=== PATIENT | male | born 1970 | race Caucasian/White ===

== ENCOUNTER 2020-03-07 10:17 | Outpatient (NON) | payer OTHER, SELFPAY ==
[2020-03-07 20:03] LABS: SARS-CoV-2 RNA PCR Negative
== END 2020-03-07 10:18 ==
PROVIDERS: Visit Provider Clinical Nurse Specialist
DX: R05 Cough (principal); Z20.828 Contact with and (suspected) exposure to other viral communicable diseases
CPT/HCPCS: 87635; C9803; U0003

== ENCOUNTER 2020-09-20 11:06 | Outpatient (NON) | payer OTHER, SELFPAY ==
[2020-09-20 14:14] LABS: Influenza Control Positive
[2020-09-20 22:34] LABS: SARS-CoV-2 RNA PCR Positive
== END 2020-09-20 11:07 ==
LOC: ANHCOVIDDT 11:07
PROVIDERS: PCP Internal Medicine; Visit Provider Clinical Nurse Specialist
DX: R09.81 Nasal congestion (principal); U07.1 COVID-19
CPT/HCPCS: 87804; C9803; U0003; U0005

== ENCOUNTER 2022-05-22 08:00 | Outpatient (NON) | payer OTHER, SELFPAY | END 2022-05-22 08:01 | disposition home or self-care (01) | PROVIDERS: PCP Internal Medicine; Visit Provider Internal Medicine Gastroenterology | DX: Z12.11 Encounter for screening for malignant neoplasm of colon (principal) | CPT/HCPCS: 88305 ==

== ENCOUNTER 2022-05-22 12:11 | Day surgery (SDC) | payer OTHER, SELFPAY ==
[2022-05-08 15:15] VITALS: BMI 28.6
[2022-05-22 12:36] VITALS: BP 176/123; PULSE 70; RESP 16; TEMP 36.9; O2SAT 99
[2022-05-22] MEDS: LACTATED RINGERS 1,000 ML 150 ML IV CONT (12:48)
--- NOTE | 2022-05-22 12:53 | WPDANESEPPF ---
Anes - Initial Pre Proc Eval Procedure: Operation Date: 05/22/22 13:45 Proposed Procedures p Screening Colonoscopy - Kingston Bustillo MD Date/Time: 05/22/22 12:53 Surgeon: Kingston Bustillo MD Pre Op Diagnosis: Neoplasm Screening and Hx Rectal Polyp Patient Data Age: 51 Gender: M Height: 1.78 m Weight: 90.5 kg Last Vital Signs Temp 36.9 C 05/22/22 12:36 Pulse 70 05/22/22 12:36 Resp 16 05/22/22 12:36 BP 176/123 H 05/22/22 12:36 Pulse Ox 99 05/22/22 12:36 O2 Del Method Room Air 05/22/22 12:36 Allergies Allergy/AdvReac Type Severity Reaction Status Date / Time Penicillins AdvReac Mild irritation Verified 05/22/22 12:34 Home Medications Medication Instructions Recorded Confirmed Type allopurinol 100 mg tablet 100 mg PO DAILY #90 tabs 05/22/21 05/22/22 Rx lisinopril 20 mg tablet 20 mg PO DAILY #90 tabs 09/05/21 05/22/22 Rx atorvastatin 40 mg tablet 40 mg PO QHS #90 tabs 03/21/22 05/22/22 Rx Patient hx anesthesia problems: none Family hx anesthesia problems: none Results Review: All pre-operative results and documents have been reviewed as part of the pre-operative evaluation. [facility] Past Medical History Medical History Gout Hyperlipidemia Hypertension Lump in the testicle Surgical History Surgical History (Updated 05/22/22 @ 12:53 by Rommel Dai MD) H/O colonoscopy Family History Family History Sibling Hypertension Daughter Neuroblastoma Father Esophageal cancer Mother Hypertension Family history of uterine cancer Son Kidney cyst, acquired Social History Social History Social History: Caffeine-Coffee daily Smoking status: Former smoker Smoking end date: 09/02/18 Alcohol intake: current Drinks per week: 42 Alcohol use details: beer Living arrangements: with family Anes - Eval Final PreProcedure Day of Procedure 09/20/22 12:53 Patient weight: overweight Heart: regular rate and rhythm Lungs: clear to auscultation Neurological: alert and oriented Last oral intake: >/= 8 hours ASA classification: III Emergent: no Anesthetic plan: proceed Anesthesia type and monitoring: general GIVS and standard monitoring Results Review: All pre-operative results and documents have been reviewed as part of the pre-operative evaluation. Informed Consent: The patient's anesthetic plan and its attendant risks and benefits were discussed with the patient/family/POA. Questions were solicited and answers provided to the satisfaction of the patient/family/POA.
--- NOTE | 2022-05-22 12:58 | PM.HPGS ---
History of Present Illness History of Present Illness Consent: Risks, benefits, and alternatives have been discussed and questions answered. Patient agrees to proceed with procedure. Chief complaint: Neoplasm Screening and Hx Rectal Polyp Narrative: Marcos Xiong is a 51 year old male with colon polyp in 2014 Review of Systems Constitutional: Constitutional: Denies headache(s) and Denies weakness Eyes: Eyes: Denies blurry vision ENT: Reports Normal hearing present, Denies headache(s) and Denies neck pain Cardiovascular: Cardiovascular: Denies chest pain and Denies dyspnea Respiratory: Respiratory: Denies dyspnea Gastrointestinal: Gastrointestinal: Reports no additional gastrointestinal complaints Genitourinary: Genitourinary: Denies dysuria Musculoskeletal: Musculoskeletal: Denies neck pain Integumentary/Breasts: Skin/Breast: Denies dry skin Neurologic: Reports Normal hearing present, Denies headache(s) and Denies weakness Psychiatric: Psychiatric: Denies anxiety Endocrine: Endocrine: Denies change in body appearance Hematologic/Lymphatic: Hematologic/Lymphatic: Denies easy bleeding Allergic/Immunologic: Allergic/Immunologic: Denies urticaria PMFSH Past Medical History Medical History Gout Hyperlipidemia Hypertension Lump in the testicle Surgical History Surgical History (Updated 05/22/22 @ 12:53 by Rommel Dai MD) H/O colonoscopy Family History Family History Sibling Hypertension Daughter Neuroblastoma Father Esophageal cancer Mother Hypertension Family history of uterine cancer Son Kidney cyst, acquired Social History Social History Social History: Caffeine-Coffee daily Smoking status: Former smoker Smoking end date: 09/02/18 Alcohol intake: current Drinks per week: 42 Alcohol use details: beer Living arrangements: with family Meds Home Medications and Allergies Home Medications Medication Instructions Recorded Confirmed Type allopurinol 100 mg tablet 100 mg PO DAILY #90 tabs 05/22/21 05/22/22 Rx lisinopril 20 mg tablet 20 mg PO DAILY #90 tabs 09/05/21 05/22/22 Rx atorvastatin 40 mg tablet 40 mg PO QHS #90 tabs 03/21/22 05/22/22 Rx Allergies Allergy/AdvReac Type Severity Reaction Status Date / Time Penicillins AdvReac Mild irritation Verified 05/22/22 12:34 Vital Signs Vital Signs - 24 hr 05/22/22 12:36 Temperature 98.5 F Pulse Rate 70 Respiratory Rate 16 Blood Pressure 176/123 H Pulse Oximetry 99 Oxygen Delivery Room Air Exam Const: General: comfortable and no acute distress HENMT: General nose exam: Normal nares present Eyes: General: appearance normal, both eyes and all related structures Neck: Neck: no JVD Resp: Auscultation: clear to auscultation bilaterally Cardio: Rate: regular rate Rhythm: regular rhythm GI: Inspection: non-distended GI Palp: Yes Soft to palpation Skin: General skin exam: normal color Neuro: General: gait normal Speech: normal speech Extrem: General: normal to inspection Psych: Mental Status: mental status grossly normal Assessment and Plan Assessment and plan (1) Screening for colon cancer: Code(s): Z12.11 - Encounter for screening for malignant neoplasm of colon Status: Acute Assessment and Plan: colonoscopy
--- NOTE | 2022-05-22 13:26 | SUR.OPER ---
LARGE POLYP REMOVED BY HOT SNARE, KUO NET USED TO RETRIEVE SPECIMENS. RESOLUTION CLIP X3 PLACED TO SITE. LOT [id number], [id number]
[2022-05-22 13:31] VITALS: BP 139/97; PULSE 72; RESP 16; O2SAT 99
--- NOTE | 2022-05-22 13:33 | SUR.OPER ---
RESOLUTION CLIP X4. SAME LOT AND EXP ABOVE
[2022-05-22 13:41] VITALS: BP 148/88; PULSE 66; RESP 14; O2SAT 100
--- NOTE | 2022-05-22 13:43 | WPDANESPN ---
Anes - Prog Note Post-Op Date/Time: 05/22/22 13:43 Cardiovascular status: normal Respiratory status: normal Airway patency: baseline Mental status: baseline Post-Op hydration status: normal Vital Signs: Last Vital Signs Temp 36.9 C 05/22/22 12:36 Pulse 72 05/22/22 13:31 Resp 16 05/22/22 13:31 BP 139/97 H 05/22/22 13:31 Pulse Ox 99 05/22/22 13:31 O2 Del Method Room Air 05/22/22 13:31 Pain Score (VAS): 0/10 I/O: Intake & Output 05/21/22 05/22/22 05/22/22 23:59 07:59 15:59 Intake Total 400 Balance 400 Patient Feedback: Patient satisfied with anesthetic care.
[2022-05-22 13:51] VITALS: BP 132/87; PULSE 68; RESP 16; O2SAT 100
== END 2022-05-22 14:16 | disposition home or self-care (01) ==
PROVIDERS: PCP Internal Medicine; Visit Provider Internal Medicine Gastroenterology
PROC: 0DJD8ZZ Inspection of Lower Intestinal Tract, Via Natural or Artificial Opening Endoscopic (ICD-10-PCS; CPT 45378; principal; 2022-05-22 13:45)
DX: Z12.11 Encounter for screening for malignant neoplasm of colon (principal)
CPT/HCPCS: 45385; 45382

== ENCOUNTER 2022-11-29 13:19 | Outpatient (CLI) | payer OTHER, SELFPAY ==
[2022-11-29 18:42] LABS: Alanine Aminotransferase 52 U/L (6-50); Albumin Level 4.5 g/dL (3.5-5.1); Alkaline Phosphatase 91 U/L (38-126); Anion Gap 5 mmol/L (8-16); Aspartate Amino Transferase 40 U/L (17-59); Blood Urea Nitrogen 12 mg/dL (9-20); Calcium 9.6 mg/dL (8.4-10.2); Carbon Dioxide 31 mmol/L (22-30); Chloride 100 mmol/L (98-107); Cholesterol 170 mg/dL (0-200); Estimated Glomerular Filt Rate > 60; Glucose 100 mg/dL (65-110); HDL Direct 26 mg/dL; Potassium 4.4 mmol/L (3.4-5.0); Sodium 136 mmol/L (137-145); Triglycerides 167 mg/dL (<150)
[2022-11-29 18:53] LABS: LDL Cholesterol Direct 109 mg/dL
[2022-11-29 19:09] LABS: Prostate Specific Antigen 0.6 ng/mL (< OR = 4.0)
[2022-11-29 19:12] LABS: Appearance Urine Clear (Clear); Bilirubin Urine Negative (Negative); Blood Urine Negative (Negative); Color Urine Yellow (Yellow); Glucose Urine UA Negative (Negative); Ketones Urine Negative (Negative); Leukocyte Esterase Ur Negative LEU/UL (Negative); Nitrate Urine Negative (Negative); Protein Urine Negative (Negative); Specific Grav Ur 1.012 (1.001-1.035); Urobilinogen Urine 0.2 mg/dL (<2.0); pH Urine 6.5 (5.0-9.0)
[2022-11-29 19:20] LABS: Add Urine Microscopic? NO
[2022-11-29 19:21] LABS: Basophils Absolute Auto 0.1 K/mm3 (0.0-0.1); Basophils Percent Auto 0.8 % (0.2-1.2); Eosinophils Absolute Auto 0.2 K/mm3 (0-0.3); Eosinophils Percent Auto 2.5 % (0-4.4); Hematocrit 42.9 % (42.0-52.0); Hemoglobin 14.7 g/dL (14.0-18.0); Immature Granulocyte Absolute 0.02 K/mm3 (0.00-0.031); Immature Granulocyte Percent A 0.3 % (0-0.5); Lymphocytes Absolute Auto 2.49 K/mm3 (0.9-3.2); Mean Corpuscular HGB Conc 34.3 g/dl (32-36); Mean Corpuscular Hemoglobin 31.7 pg (26-34); Mean Corpuscular Volume 92.7 fl (80-100); Mean Platelet Volume 9.8 fl (7.4-10.4); Monocytes Absolute Auto 0.5 K/mm3 (0.1-0.6); Monocytes Percent Auto 7.2 % (2.6-8.5); Neutrophils Absolute Auto 3.2 K/mm3 (1.3-6.7); Neutrophils Percent Auto 50.2 % (45.5-73.1); Platelet Count Result 235 k/mm3 (150-375); Red Blood Count 4.63 M/mm3 (4.6-6.20); Red Cell Distribution Width 12.5 % (11.5-14.5); White Blood Count 6.4 K/mm3 (4.5-10.0)
== END 2022-11-29 13:20 | disposition home or self-care (01) ==
LOC: ANHGOSHLAB 13:20
PROVIDERS: PCP Internal Medicine; Visit Provider Nurse Practitioner
DX: R35.0 Frequency of micturition (principal); E78.2 Mixed hyperlipidemia; I10 Essential (primary) hypertension; Z12.5 Encounter for screening for malignant neoplasm of prostate
CPT/HCPCS: 36415; 80053; 80061; 81003; 84153; 85025; G0103

== ENCOUNTER 2023-03-11 08:10 | Day surgery (SDC) | payer OTHER, SELFPAY ==
[2023-02-15 10:15] VITALS: BMI 28.7
[2023-02-20 11:48] VITALS: BMI 27.8
--- NOTE | 2023-03-08 12:54 | WPDANESEPPF ---
Anes - Initial Pre Proc Eval Procedure: Operation Date: 03/11/23 10:00 Proposed Procedures p Diagnostic Colonoscopy - Kingston Bustillo MD Date/Time: 03/08/23 12:54 Surgeon: Kingston Bustillo MD Pre Op Diagnosis: History of Colon Polyps Patient Data Age: 52 Gender: M Height: 1.78 m Weight: 88 kg Allergies Allergy/AdvReac Type Severity Reaction Status Date / Time Penicillins AdvReac Mild Rash Verified 03/11/23 08:48 Home Medications Medication Instructions Recorded Confirmed Type allopurinol 100 mg tablet 100 mg PO DAILY #90 tabs 07/11/22 03/11/23 Rx lisinopril 20 mg tablet 20 mg PO DAILY #90 tabs 07/11/22 03/11/23 Rx atorvastatin 40 mg tablet 40 mg PO QHS #90 tabs 02/25/23 03/11/23 Rx Patient hx anesthesia problems: none Family hx anesthesia problems: none Results Review: All pre-operative results and documents have been reviewed as part of the pre-operative evaluation. [facility] Past Medical History Medical History (Updated 03/11/23 @ 09:47 by Kingston Bustillo MD) Adenomatous colon polyp Gout Hyperlipidemia Hypertension Lump in the testicle Surgical History Surgical History H/O colonoscopy Family History Family History Sibling Hypertension Daughter Neuroblastoma Father Esophageal cancer Mother Hypertension Family history of uterine cancer Son Kidney cyst, acquired Social History Social History (Updated 12/06/22 @ 13:23 by Riccardo Jacobson MA) Social History: Caffeine-Coffee daily Smoking status: Never smoker Smoking end date: 09/02/18 Alcohol intake: current Drinks per week: 42 Alcohol use details: beer Substance use: never Substance use type: does not use Lack of Transportation: No Lack of Food: Never True Current Housing: I Have Housing Concerned About Future Housing: No Difficulty Paying Gas/Electric Bills: No Difficulty Paying for Meds: No Currently Unemployed: No Education: Bachelor's Degree Difficulty w/ Childcare or Family Care: No Living arrangements: with family Spiritual care concerns: No Anes - Eval Final PreProcedure Day of Procedure 03/08/23 12:54 Patient weight: overweight Heart: regular rate and rhythm Lungs: clear to auscultation Airway: Mallampati scale class II Neurological: alert and oriented Last oral intake: >/= 8 hours ASA classification: III Emergent: no Anesthetic plan: proceed Anesthesia type and monitoring: general GIVS and standard monitoring Results Review: All pre-operative results and documents have been reviewed as part of the pre-operative evaluation. Informed Consent: The patient's anesthetic plan and its attendant risks and benefits were discussed with the patient/family/POA. Questions were solicited and answers provided to the satisfaction of the patient/family/POA.
[2023-03-11 08:45] VITALS: BP 144/99; PULSE 73; RESP 16; TEMP 36.6; O2SAT 99
[2023-03-11] MEDS: LACTATED RINGERS 1,000 ML 150 ML IV CONT (08:56)
--- NOTE | 2023-03-11 09:46 | PM.HPGS ---
History of Present Illness History of Present Illness Consent: Risks, benefits, and alternatives have been discussed and questions answered. Patient agrees to proceed with procedure. Chief complaint: History of Colon Polyps Narrative: Marcos Xiong is a 52 year old male with large rectosigmoid TA polyp removed 05/2022 here to reassess Review of Systems Constitutional: Constitutional: Denies headache(s) and Denies weakness Eyes: Eyes: Denies blurry vision ENT: Reports Normal hearing present, Denies headache(s) and Denies neck pain Cardiovascular: Cardiovascular: Denies chest pain and Denies dyspnea Respiratory: Respiratory: Denies dyspnea Gastrointestinal: Gastrointestinal: Reports no additional gastrointestinal complaints Genitourinary: Genitourinary: Denies dysuria Musculoskeletal: Musculoskeletal: Denies neck pain Integumentary/Breasts: Skin/Breast: Denies dry skin Neurologic: Reports Normal hearing present, Denies headache(s) and Denies weakness Psychiatric: Psychiatric: Denies anxiety Endocrine: Endocrine: Denies change in body appearance Hematologic/Lymphatic: Hematologic/Lymphatic: Denies easy bleeding Allergic/Immunologic: Allergic/Immunologic: Denies urticaria PMFSH Past Medical History Medical History (Updated 03/11/23 @ 09:47 by Kingston Bustillo MD) Adenomatous colon polyp Gout Hyperlipidemia Hypertension Lump in the testicle Surgical History Surgical History H/O colonoscopy Family History Family History Sibling Hypertension Daughter Neuroblastoma Father Esophageal cancer Mother Hypertension Family history of uterine cancer Son Kidney cyst, acquired Social History Social History (Updated 12/06/22 @ 13:23 by Riccardo Jacobson MA) Social History: Caffeine-Coffee daily Smoking status: Never smoker Smoking end date: 09/02/18 Alcohol intake: current Drinks per week: 42 Alcohol use details: beer Substance use: never Substance use type: does not use Lack of Transportation: No Lack of Food: Never True Current Housing: I Have Housing Concerned About Future Housing: No Difficulty Paying Gas/Electric Bills: No Difficulty Paying for Meds: No Currently Unemployed: No Education: Bachelor's Degree Difficulty w/ Childcare or Family Care: No Living arrangements: with family Spiritual care concerns: No Meds Home Medications and Allergies Home Medications Medication Instructions Recorded Confirmed Type allopurinol 100 mg tablet 100 mg PO DAILY #90 tabs 07/11/22 03/11/23 Rx lisinopril 20 mg tablet 20 mg PO DAILY #90 tabs 07/11/22 03/11/23 Rx atorvastatin 40 mg tablet 40 mg PO QHS #90 tabs 02/25/23 03/11/23 Rx Allergies Allergy/AdvReac Type Severity Reaction Status Date / Time Penicillins AdvReac Mild Rash Verified 03/11/23 08:48 Vital Signs Vital Signs - 24 hr 03/11/23 08:45 Temperature 97.9 F Pulse Rate 73 Respiratory Rate 16 Blood Pressure 144/99 H Pulse Oximetry 99 Oxygen Delivery Room Air Exam Const: General: comfortable and no acute distress HENMT: Face/Nose/Sinus: Normal nares present Eyes: General: appearance normal, both eyes and all related structures Neck: Neck: no JVD Resp: Auscultation: clear to auscultation bilaterally Cardio: Rate: regular rate Rhythm: regular rhythm GI: Inspection: non-distended GI Palp: Yes Soft to palpation Skin: General skin exam: normal color Neuro: General: gait normal Speech: normal speech Extrem: General: normal to inspection Psych: Mental Status: mental status grossly normal Assessment and Plan Assessment and plan (1) Adenomatous colon polyp: Code(s): D12.6 - Benign neoplasm of colon, unspecified Status: Acute Assessment and Plan: colonoscopy
[2023-03-11 10:02] VITALS: BP 107/81; PULSE 73; RESP 16; O2SAT 98
[2023-03-11 10:12] VITALS: BP 103/80; PULSE 75; RESP 18; O2SAT 99
[2023-03-11 10:22] VITALS: BP 127/97; PULSE 58; RESP 18; O2SAT 99
--- NOTE | 2023-03-11 11:13 | WPDANESPN ---
Anes - Prog Note Post-Op Date/Time: 03/11/23 11:13 Cardiovascular status: normal Respiratory status: normal Airway patency: baseline Mental status: baseline Post-Op hydration status: normal Vital Signs: Last Vital Signs Temp 36.6 C 03/11/23 08:45 Pulse 58 L 03/11/23 10:22 Resp 18 03/11/23 10:22 BP 127/97 H 03/11/23 10:22 Pulse Ox 99 03/11/23 10:22 O2 Del Method Room Air 03/11/23 10:22 Pain Score (VAS): 0 I/O: Intake & Output 03/10/23 03/11/23 03/11/23 23:59 07:59 15:59 Intake Total 500 Balance 500 Post-procedural complaints: none Patient Feedback: Patient satisfied with anesthetic care. Other Findings: Patient vital signs back to baseline. Patient denies nausea and vomiting. Patient's pain under control. Patient OK for discharge.
== END 2023-03-11 10:30 | disposition home or self-care (01) ==
PROVIDERS: PCP Internal Medicine; Visit Provider Internal Medicine Gastroenterology
PROC: 0DJD8ZZ Inspection of Lower Intestinal Tract, Via Natural or Artificial Opening Endoscopic (ICD-10-PCS; CPT 45378; principal; 2023-03-11 10:00)
DX: Z86.010 Personal history of colon polyps (principal)
CPT/HCPCS: 45378

== ENCOUNTER 2023-07-19 08:53 | Emergency (ER) | payer OTHER, SELFPAY ==
--- NOTE | ~2023-07-19 | XR_ITS ---
XR wrist RT min 3V DATE: 07/19/2023 09:14 INDICATION: Injury 3 weeks ago; persistent pain TECHNIQUE: 4 views COMPARISON: None FINDINGS: There is minimal peritumoral spurring at the first carpal metacarpal joint consistent with mild osteoarthritis. No fracture or dislocation, periosteal reaction or bone destruction, erosive change or chondrocalcino sis. IMPRESSION: No fracture or dislocation Mild osteophyte is at first carpometacarpal joint Reviewed, dictated and finalized at location B. AT ENGINEER
[2023-07-19 09:02] VITALS: BP 121/87; PULSE 81; RESP 16; TEMP 36.9; O2SAT 99
--- NOTE | 2023-07-19 09:55 | ED.UPPEXIN ---
HPI - Extremity Injury (Upper) General Chief Complaint: Extremity Injury, Upper Stated Complaint: Injured wrist Time Seen by Provider: 07/19/23 09:17 Source: patient and RN notes reviewed Mode of arrival: ambulatory Limitations: no limitations History of Present Illness HPI narrative: Patient presents today complaining of right wrist pain times 3-4 weeks. Patient is Ольга injured his wrist by bracing when he was falling. Denies numbness or tingling. He has been taking Tylenol and ibuprofen with some mild relief. He has also been wearing a wrist brace. States he continues to re-injure his wrist. Pain increases with range of motion. Related Data Allergies Allergy/AdvReac Type Severity Reaction Status Date / Time Penicillins AdvReac Mild Rash Verified 07/19/23 09:05 Review of Systems Review of Systems: CONSTITUTIONAL: Denies body aches, fever, chills, or sweats. EYES: Denies visual changes, redness, or discharge. ENT: Denies rhinorrhea, congestion, sore throat, or otalgia. CARDIOVASCULAR: Denies chest pain, palpitations, or edema. RESPIRATORY: Denies cough or dyspnea. GASTROINTESTINAL: Denies abdominal pain, nausea, vomiting, or diarrhea. GENITOURINARY: Denies dysuria or hematuria. SKIN: Denies rash, itching, or wounds. MUSCULOSKELETAL: Denies back pain, or myalgia.+ right wrist pain NEUROLOGIC: Denies headache, numbness, tingling, or weakness. PSYCH: Denies depression or anxiety. [facility] Past Medical History Medical History Adenomatous colon polyp Gout Hyperlipidemia Hypertension Lump in the testicle Surgical History Surgical History H/O colonoscopy Family History Family History Sibling Hypertension Daughter Neuroblastoma Father Esophageal cancer Mother Hypertension Family history of uterine cancer Son Kidney cyst, acquired Social History Social History Social History: Caffeine-Coffee daily Smoking status: Never smoker Smoking end date: 09/02/18 Alcohol intake: current Drinks per week: 42 Alcohol use details: beer Substance use: never Substance use type: does not use Lack of Transportation: No Lack of Food: Never True Current Housing: I Have Housing Concerned About Future Housing: No Difficulty Paying Gas/Electric Bills: No Difficulty Paying for Meds: No Currently Unemployed: No Education: Bachelor's Degree Difficulty w/ Childcare or Family Care: No Living arrangements: with family Spiritual care concerns: No Comments At time of signature, I have reviewed and agree with nursing past medical, surgical, social and family history unless otherwise noted. Please see nursing chart for further information. There is no relevant family history pertinent to the presenting complaint Exam Narrative: GENERAL: Well-appearing, well-nourished, and in no acute distress. HEAD: Normocephalic, atraumatic. EYES: EOMI. No redness or drainage. Conjunctivae normal. ENT: Mucous membranes pink and moist. NECK: Normal AROM. CHEST: No respiratory distress. EXTREMITIES: Right wrist: Tenderness to the dorsum of the wrist. No ecchymosis, erythema, or edema noted. Pain with flexion and extension. No pain with pronation or supination. No snuffbox tenderness. Distal sensation intact. Capillary refill normal. Radial pulse normal. SKIN: Warm, dry, no rash. Capillary refill normal. Normal skin turgor. NEURO: No focal deficits. Alert and oriented x3. Gait steady. PSYCH: Normal affect. No signs of depression or anxiety. Course Course Level of Care: Express Care Visit Vital Signs Vital signs: Vital Signs Temperature 98.4 F 07/19/23 09:02 Pulse Rate 81 07/19/23 09:02 Respiratory Rate 16 07/19/23 09:02 Bl
== END 2023-07-19 10:04 | disposition home or self-care (01) ==
PROVIDERS: Emergency Provider Nurse Practitioner; PCP Internal Medicine
DX: S63.501A Unspecified sprain of right wrist, initial encounter (principal); W19.XXXA Unspecified fall, initial encounter; E78.5 Hyperlipidemia, unspecified; I10 Essential (primary) hypertension; M10.9 Gout, unspecified; Z87.891 Personal history of nicotine dependence
CPT/HCPCS: 73110; 99213; G0463

== ENCOUNTER 2023-08-29 09:04 | Outpatient (CLI) | payer OTHER, SELFPAY ==
[2023-08-29 19:38] LABS: Alanine Aminotransferase 42 U/L (6-50); Albumin Level 4.4 g/dL (3.5-5.1); Alkaline Phosphatase 93 U/L (38-126); Anion Gap 7 mmol/L (8-16); Aspartate Amino Transferase 46 U/L (17-59); Bilirubin,Total 0.6 mg/dL (0.2-1.3); Blood Urea Nitrogen 14 mg/dL (9-20); Calcium 10.1 mg/dL (8.4-10.2); Carbon Dioxide 25 mmol/L (22-30); Chloride 106 mmol/L (98-107); Estimated Glomerular Filt Rate > 60; Glucose 94 mg/dL (65-110); Potassium 4.1 mmol/L (3.4-5.0); Sodium 138 mmol/L (137-145)
== END 2023-08-29 09:05 | disposition home or self-care (01) ==
LOC: ANHGOSHLAB 09:05
PROVIDERS: PCP Internal Medicine; Visit Provider Nurse Practitioner
DX: R74.8 Abnormal levels of other serum enzymes (principal)
CPT/HCPCS: 36415; 80053

== ENCOUNTER 2024-03-19 08:16 | Outpatient (CLI) | payer OTHER, SELFPAY ==
[2024-03-19 20:31] LABS: Basophils Absolute Auto 0.1 K/mm3 (0.0-0.1); Basophils Percent Auto 0.6 % (0.2-1.2); Eosinophils Absolute Auto 0.3 K/mm3 (0-0.3); Eosinophils Percent Auto 3.2 % (0-4.4); Hematocrit 46.5 % (42.0-52.0); Hemoglobin 15.7 g/dL (14.0-18.0); Immature Granulocyte Absolute 0.03 K/mm3 (0.00-0.031); Immature Granulocyte Percent A 0.4 % (0-0.5); Lymphocytes Absolute Auto 3.15 K/mm3 (0.9-3.2); Lymphocytes Percent Auto 40.9 % (18.3-44.2); Mean Corpuscular HGB Conc 33.8 g/dl (32-36); Mean Corpuscular Hemoglobin 31.7 pg (26-34); Mean Corpuscular Volume 93.8 fl (80-100); Mean Platelet Volume 10.2 fl (7.4-10.4); Monocytes Absolute Auto 0.6 K/mm3 (0.1-0.6); Monocytes Percent Auto 7.8 % (2.6-8.5); Neutrophils Absolute Auto 3.6 K/mm3 (1.3-6.7); Neutrophils Percent Auto 47.1 % (45.5-73.1); Platelet Count Result 207 k/mm3 (150-375); Red Blood Count 4.96 M/mm3 (4.6-6.20); Red Cell Distribution Width 12.8 % (11.5-14.5); White Blood Count 7.7 K/mm3 (4.5-10.0)
[2024-03-19 20:36] LABS: Alanine Aminotransferase 54 U/L (6-50); Albumin Level 4.6 g/dL (3.5-5.1); Alkaline Phosphatase 70 U/L (38-126); Anion Gap 10 mmol/L (4-12); Aspartate Amino Transferase 51 U/L (17-59); Bilirubin,Total 0.7 mg/dL (0.2-1.3); Blood Urea Nitrogen 15 mg/dL (9-20); Calcium 9.7 mg/dL (8.4-10.2); Carbon Dioxide 28 mmol/L (22-30); Chloride 99 mmol/L (98-107); Cholesterol 180 mg/dL (0-200); Estimated Glomerular Filt Rate > 60; Glucose 78 mg/dL (65-110); HDL Direct 41 mg/dL; Potassium 4.2 mmol/L (3.4-5.0); Sodium 137 mmol/L (137-145); Triglycerides 282 mg/dL (<150); Uric Acid 7.1 mg/dL (3.5-8.5)
[2024-03-19 20:42] LABS: LDL Cholesterol Direct 104 mg/dL
[2024-03-19 21:04] LABS: Prostate Specific Antigen 0.7 ng/mL (< OR = 4.0)
== END 2024-03-19 08:17 | disposition home or self-care (01) ==
LOC: ANHGOSHLAB 08:17
PROVIDERS: PCP Nurse Practitioner; Visit Provider Nurse Practitioner
DX: E78.2 Mixed hyperlipidemia (principal); I10 Essential (primary) hypertension; M10.471 Other secondary gout, right ankle and foot; R74.8 Abnormal levels of other serum enzymes; Z12.5 Encounter for screening for malignant neoplasm of prostate
CPT/HCPCS: 36415; 80053; 80061; 84153; 84550; 85025; G0103

== ENCOUNTER 2025-04-15 10:40 | Outpatient (CLI) | payer OTHER, SELFPAY ==
--- OUTSIDE RECORDS SUMMARY | 2025-04-15 10:54 | XMS_ITS | Clinical Summary ---
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
--- OUTSIDE RECORDS SUMMARY | 2025-04-15 10:54 | XMS_ITS | Encounter Summary ---
Author Organization [facility] Address [address] [place] [address] Care Team Providers Care Can Solderer Name Role Phone Unavailable Primary Care Provider Unavailabl e Encounter Details Date Type Department Care Team (Late st Contact Info) Description 02/04/2004 Outpatient Historical [facility] [place] [address] [facility] [address] [place] [address] [place] [address] [place] [address] Social History Tobacco Use Types Packs/Day Years Used Date Smoking Tobacco: Never Assessed Sex and Gender Information Value Date Recorded Sex Assigned at Not on file 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
--- OUTSIDE RECORDS SUMMARY | 2025-04-15 10:54 | XMS_ITS | Clinical Summary ---
Author Organization [facility] Address [address] [place] [address] Care Team Providers Care Bundling Machine Operator Name Role Phone Unavailable Primary Care Provider Unavailabl e Source Comments [facility],non-owned Affiliates and Associated Physician Practices is amultiple site organization consisting of ambulatory clinics and hospital sitesin [place], [place], [place] and [place]. This disclosure is being madepursuant to the Care Everywhere program and may not contain all information available regarding this patient. Last updated 18.[facility] Allergies Active Allergy Reactions Criticality Noted Date Comments Penicillins Rash Medium 11/05/2017 Medications * Be aware that medications may not be up to date on this document. Alwaysverify current medications with the patient. simvastatin (ZOCOR) 20 MG tablet Take 20 mg by mouth at bedtime Active lisinopril (PRINIVIL; ZESTRIL) 20 MG tablet Take 20 mg by mouth once daily Active fluticasone propionate (FLONASE) 50 MCG/ACT nasal spray [place] 2 sprays into each nostril once daily 1 bottles 11/05/2017 Active Family History Medical History Relation Name Comments Cancer - Esophageal Father Cancer - Uterine Mother Relation Name Status Comments Father Mother Social History Tobacco Use Types Packs/Day Years Used Date Smoking Tobacco: Every Day Cigarettes Smokeless Tobacco: Never Comments:pt started at age [age] Sex and Gender Information Value Date Recorded Sex Assigned at Not on file Legal Sex Male 12:24 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 Gender Identity Not on file Sexual Orientation Not on file Last Filed Vital Signs Vital Sign Reading Time Taken Comments Blood Pressure 144/98 11/05/2017 3:19 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 Pulse 88 11/05/2017 3:07 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 Temperature 36.7 C (98.1 F) 11/05/2017 3:07 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 Respiratory Rate 16 11/05/2017 3:07 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 Oxygen Saturation 98% 11/05/2017 3:07 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 Inhaled Oxygen Concentration - - Weight 86.2 kg (190 lb) 11/05/2017 3:07 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 Height 177.8 cm (5' 10) 11/05/2017 3:07 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 Body Mass Index 27.26 11/05/2017 3:07 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 Plan of Treatment Health Maintenance Due Date Last Done Comments COLOGUARD (AGES 45-75) - COL ON CA SCREENING 1969 COLON MONITORING 1969 COLONOSCOPY - COLON CA SCREENING 1969 CT COLONOGRAPHY - COLON CA SCREENING 1969 Colorectal Cancer Screening 1969 FIT - COLON CA SCREENING 1969 FLEX SIG - COLON CA SCREENING 1969 HIV SCREENING 1984 HEPATITIS C SCREENING 12/09/1987 DTAP/TDAP/TD VACCINES (1 - Tdap) 1988 HEPATITIS B VACCINE (1 of 3 - 19+ 3-dose series) 1988 SCREENING FOR DIABETES 11/05/2017 PNEUMOCOCCAL VACCINE 50+ (1 of 1 - PCV) 12/14/2019 ZOSTER VACCINE (1 of 2) 12/14/2019 COVID-19 VACCINE (1 - 2023-2 5 season) 2024 DEPRESSION SCREENING 09/02/2024 INFLUENZA VACCINE (#1) 2025 HIB VACCINE Aged Out No longer eligi ble based on patient's age to complete this topic HPV VACCINE Aged Out No longer eligi ble based on patient's age to complete this topic MENINGOCOCCAL (Group B) VACC INE SHARED DECISION-MAKING Aged Out No longer eligibl e based on patient's age to complete this topic MENINGOCOCCAL GROUPS A/C/Y/W VACCINE Aged Out No longer eligible b ased on patient's age to complete this topic Insurance [facility] Member Subscriber Plan / Payer (Ef fective 2017-Present) Name:Marcos Xiong Relation to Subscriber:Spouse Name:LEFTY XIONGHLEEN Date of :1965 (Home) Address: [address] [place] [address] Payer ID:[id number] (NAIC) Type:O Address: [place] [phone] Member Subscriber Plan / Payer (Ef fective 2014-Present) Name:Marcos Xiong Relation to Subscriber:Spouse Name:MARYFADISHAHIDA S Subscriber ID:Not on file Date of :1965 (Home) Address: [address] [place] [address] [place] [address] Payer ID:[id number] (NAIC) Type:O Address: [place] [phone]
--- OUTSIDE RECORDS SUMMARY | 2025-04-15 10:54 | XMS_ITS | Clinical Summary ---
Author Organization [address] Address [address] [place] [id number] Care Team Providers Care Airplane Pilot Supervisor Name Role Phone Marc Jackson DO Primary Care Provider [phone]- [phone] Allergies Active Allergy Reactions Criticality Noted Date Comments Penicillins Unknown 05/09/2017 Medications simvastatin (ZOCOR) 20 mg tablet TK 1 T PO HS 3 7 Active cyclobenzaprine (FLEXERIL) 5 mg tablet TK 1 T PO BID PRN 0 7 Active lisinopril (PRINIVIL,ZESTR IL) 20 mg tablet TK 1 T PO QD 3 7 Active allopurinoL (ZYLOPRIM) 100 mg tablet TK 1 T PO D 0 Active fluticasone propionate (FLONASE) 50 mcg/actuation nasal spray Administer 2 sprays into affected nostril(s) daily 8 Active methylPREDNISol one (Medrol, Margarito,) 4 mg Dosepack follow package directions 21 tablet 0 Active gabapentin (NEURONTIN) 300 mg capsule Take 1 capsule (300 mg total) by mouth nightly 90 capsule 1 0 Active Active Problems Problem Noted Date Diagnosed Date Lumbar spondylosis with LLE radiculopathy 2019 History of colonic polyps 05/30/2015 Rectal polyp 03/31/2015 Family History Medical History Relation Name Comments Arthritis Neg Hx Cancer Neg Hx Hypertension Neg Hx Social History Tobacco Use Types Packs/Day Years Used Date Smoking Tobacco: Every Day Smokeless Tobacco: Current Alcohol Use Standard Drinks/Week Comments Yes 0 (1 standard drink = 0.6 oz pur e alcohol) Personal Safety Answer Date Recorded Getting School Help Needed Not on file 11/15 Sex and Gender Information Value Date Recorded Sex Assigned at Not on file 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 Gender Identity Not on file Sexual Orientation Not on file Obstetrics History Last Filed Vital Signs Vital Sign Reading Time Taken Comments Blood Pressure 110/74 05/02/2020 9:13 AM CDT Pulse 94 05/20/2017 9:38 AM CDT Temperature 36.6 C (97.8 F) 05/02/2020 9:13 AM CDT Respiratory Rate - - Oxygen Saturation - - Inhaled Oxygen Concentration - - Weight 86.6 kg (191 lb) 05/02/2020 9:13 AM CDT Height 177.8 cm (5' 10) 05/02/2020 9:13 AM CDT Body Mass Index 27.41 05/02/2020 9:13 AM CDT Plan of Treatment Not on file Insurance [address] [place] [address] Care Teams Airplane Pilot Supervisor Relationship Specialty Start Date End Date Marc Jackson DO [phone] (work) PCP - General Internal Medicine 05/03/17
[2025-04-15 13:53] LABS: Hematocrit 44.7 % (42.0-52.0); Hemoglobin 15.0 g/dL (14.0-18.0); Immature Granulocyte Percent A 0.3 % (0-0.5); Lymphocytes Absolute Auto 2.27 K/mm3 (0.9-3.2); Mean Corpuscular HGB Conc 33.6 g/dl (32-36); Mean Corpuscular Hemoglobin 31.2 pg (26-34); Mean Corpuscular Volume 92.9 fl (80-100); Nucleated Red Blood Cells Absolute Auto 0.000 K/mm3 (0.0-0.012); Nucleated Red Blood Cells Perc 0.0 % (0.0-0.2); Platelet Count Result 213 k/mm3 (150-375); Red Blood Count 4.81 M/mm3 (4.6-6.20); White Blood Count 7.4 K/mm3 (4.5-10.0)
[2025-04-15 14:16] LABS: Alanine Aminotransferase 54 U/L (6-50); Albumin Level 4.5 g/dL (3.5-5.1); Alkaline Phosphatase 73 U/L (38-126); Anion Gap 7 mmol/L (4-12); Aspartate Amino Transferase 56 U/L (17-59); Bilirubin,Total 0.8 mg/dL (0.2-1.3); Blood Urea Nitrogen 11 mg/dL (9-20); Calcium 10.2 mg/dL (8.4-10.2); Carbon Dioxide 28 mmol/L (22-30); Chloride 102 mmol/L (98-107); Cholesterol 177 mg/dL (0-200); Estimated Glomerular Filt Rate > 60; Glucose 99 mg/dL (65-110); HDL Direct 38 mg/dL; Potassium 4.4 mmol/L (3.4-5.0); Sodium 137 mmol/L (137-145); Total Protein 7.6 g/dL (6.3-8.2); Triglycerides 210 mg/dL (<150); Uric Acid 6.5 mg/dL (3.5-8.5)
[2025-04-15 14:53] LABS: Prostate Specific Antigen 0.7 ng/mL (< OR = 4.0)
== END 2025-04-15 10:41 | disposition home or self-care (01) ==
LOC: ANHGOSHLAB 10:41
PROVIDERS: PCP Nurse Practitioner; Visit Provider Nurse Practitioner
DX: E78.2 Mixed hyperlipidemia (principal); I10 Essential (primary) hypertension; M10.471 Other secondary gout, right ankle and foot; Z12.5 Encounter for screening for malignant neoplasm of prostate; R74.8 Abnormal levels of other serum enzymes
CPT/HCPCS: 36415; 80053; 80061; 84153; 84550; 85025; G0103

== ENCOUNTER 2025-04-21 07:58 | Outpatient (CLI) | payer OTHER, SELFPAY ==
--- OUTSIDE RECORDS SUMMARY | 2025-04-21 08:04 | XMS_ITS | Clinical Summary ---
Author Organization [facility] Address [address] [place] [address] Care Team Providers Care Vp & General Counsel Name Role Phone Unavailable Primary Care Provider Unavailabl e Source Comments [facility],non-owned Affiliates and Associated Physician Practices is amultiple site organization consisting of ambulatory clinics and hospital sitesin [place], [place], [place] and [place]. This disclosure is being madepursuant to the Care Everywhere program and may not contain all information available regarding this patient. 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 Gender Identity Not on file Sexual Orientation Not on file Last Filed Vital Signs Vital Sign Reading Time Taken Comments Blood Pressure 144/98 11/05/2017 3:19 PM MAKING DEPARTMENT PREPARER Pulse 88 11/05/2017 3:07 PM MAKING DEPARTMENT PREPARER Temperature 36.7 C (98.1 F) 11/05/2017 3:07 PM MAKING DEPARTMENT PREPARER Respiratory Rate 16 11/05/2017 3:07 PM MAKING DEPARTMENT PREPARER Oxygen Saturation 98% 11/05/2017 3:07 PM MAKING DEPARTMENT PREPARER Inhaled Oxygen Concentration - - Weight 86.2 kg (190 lb) 11/05/2017 3:07 PM MAKING DEPARTMENT PREPARER Height 177.8 cm (5' 10) 11/05/2017 3:07 PM MAKING DEPARTMENT PREPARER Body Mass Index 27.26 11/05/2017 3:07 PM MAKING DEPARTMENT PREPARER Plan of Treatment Health Maintenance Due Date [...] patient's age to complete this topic Insurance [facility] Member Subscriber Plan / Payer (Ef fective 2017-Present) Name:Marcos Xiong Relation to Subscriber:Spouse Name:LEFTY XIONGHLEEN Date of :1965 (Home) Address: [address] [place] [address] Payer ID:[id number] (NAIC) Type:O Address: [place] [phone] Member Subscriber Plan / Payer (Ef fective 2014-Present) Name:Marcos Xiong Relation to Subscriber:Spouse Name:MARYFADISHAHIDA S Subscriber ID:Not on file Date of :1966 (Home) Address: [address] [place] [address] [place] [address] Payer ID:[id number] (NAIC) Type:O Address: [place] [phone]
--- OUTSIDE RECORDS SUMMARY | 2025-04-21 08:04 | XMS_ITS | Clinical Summary ---
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 Gender Identity Not on file Sexual Orientation [...] 05/02/2020 9:13 AM CDT Plan of Treatment Health Maintenance Due Date Last Done Comments Colon Cancer Screening-Colonoscopy 1969 Depression Screening 1969 Hepatitis C Screening 1969 Prostate Cancer Screening-PSA 1969 DTaP/Tdap/Td Vaccine (1 - Tdap) 1980 Hepatitis B Screening 12/14/1987 Regular Well Visit/Exam 18-64 12/14/1987 Pneumococcal vaccine <65 (1 of 2 - PCV) 1988 Zoster Vaccine (1 of 2) 12/14/2019 Influenza Vaccine (#1) [address] [place] [address] [facility] CHOICE PLUS [address] CHOICE PLUS Care Teams Copy Room Technician Relationship Specialty Start Date End Date Marc Jackson DO PCP - General Internal Medicine 05/03/17
--- OUTSIDE RECORDS SUMMARY | 2025-04-21 08:04 | XMS_ITS | Encounter Summary ---
Author Organization [facility] Address [address] [place] [address] Care Team Providers Care Crystal Grinder Name Role Phone Unavailable Primary Care Provider Unavailabl e Encounter Details Date Type Department Care Team (Late st Contact Info) Description 02/04/2004 Outpatient Historical [facility] Medicine - [place] [address] [facility] [address] [place] [address] [place] [address] [place] [address] Social History Tobacco Use Types Packs/Day Years Used Date Smoking Tobacco: Never Assessed Sex and Gender Information Value Date Recorded Sex Assigned at Not on file 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
--- OUTSIDE RECORDS SUMMARY | 2025-04-21 08:04 | XMS_ITS | Clinical Summary ---
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
[2025-04-21 13:41] LABS: Thyroid Stimulating Hormone 2.460 uIU/mL (0.465-4.680)
[2025-04-21 13:51] LABS: HIV 1/2 Ab P24 Ag Result Negative (Negative)
[2025-04-21 14:39] LABS: Iron 93 ug/dL (49-181)
[2025-04-21 14:55] LABS: Percent Iron Saturation 26 % (20-50)
[2025-04-22 01:35] LABS: Hepatitis B Surface Antigen Negative (Negative)
[2025-04-23 07:09] LABS: Deamidated Gliadin Abs, IgA 6 units (0-19); Deamidated Gliadin Abs, IgG 2 units (0-19); Immunoglobulin A, Qn 292 mg/dL (90-386)
== END 2025-04-21 07:59 | disposition home or self-care (01) ==
LOC: ANHGOSHLAB 07:59
PROVIDERS: PCP Nurse Practitioner; Visit Provider Nurse Practitioner
DX: R74.8 Abnormal levels of other serum enzymes (principal)
CPT/HCPCS: 36415; 82784; 83540; 83550; 84443; 86231; 86258; 86703; 86803; 87340; G0432